=== PATIENT | male | born 1945 | race Caucasian/White ===

== ENCOUNTER 2022-07-14 12:43 | Outpatient (CLI) | payer OTHER, SELFPAY ==
--- NOTE | 2022-07-14 13:00 | CRLHL7_ITS ---
For Patients: As a result of the Century Cures Act, medical imaging exams and procedure reports are released immediately into your electronic medical record. You may view this report before your referring provider. If you have questions, please contact your health care provider. Indication: Anal cancer s/p chemoradiotherapy Evaluation of indeterminate pulmonary nodules Technique: Postcontrast CT chest, abdomen and pelvis. 97 cc Isovue 370 intravenous contrast Please note that all CT scans at this facility use dose modulation, iterative reconstruction, and/or weight-based dosing when appropriate to reduce radiation dose to as low as reasonably achievable. Comparison: CT PET 04/06/2019, CT 10/25/2018 Findings: In the chest, there are stable subcentimeter mediastinal lymph nodes. Stable old granulomatous changes with calcified lymph nodes and calcified granulomas. No suspicious pulmonary nodule. No pleural effusion, infiltrate or pneumothorax. No CHF. No fracture. Cardiomegaly. In the abdomen, there is no suspicious intrahepatic lesion. Fatty infiltration of the liver. No stigmata of cirrhosis. Calcified splenic granulomas. Adrenal glands normal. No solid renal mass or hydronephrosis. Pancreas is normal. Normal gallbladder. Vascular calcifications. No retroperitoneal or mesenteric adenopathy. In the pelvis, mild circumferential wall thickening of the anus again noted. Colonic diverticulosis. No diverticulitis. No bowel obstruction. No free air, free fluid or abscess. Normal appendix. Similar appearance of the right testicle. No pelvic or inguinal adenopathy. Interval development of a compression deformity involving the L5 superior endplate. Impression: Similar appearance of the anus with circumferential wall thickening, mild. No bowel obstruction or inflammatory change. No evidence of metastatic disease. No suspicious pulmonary nodules. Old granulomatous disease. Hepatic steatosis. Chronic sigmoid diverticulosis. Interval development of a mild L5 superior endplate compression deformity. Please note that all CT scans at this facility use dose modulation, iterative reconstruction, and/or weight-based dosing when appropriate to reduce radiation dose to as low as reasonably achievable. Dictated by Abad Heard MD @ 07/15/2022 1:40:14 PM (Electronically Signed)
[2022-07-14 13:24] LABS: Creatinine* 1.1 mg/dL (0.5-1.5); Estimated Glomerular Filt Rate 70 ml/min
== END 2022-07-14 12:44 | disposition home or self-care (01) ==
PROVIDERS: PCP Family Medicine; Visit Provider Physician Assistant
DX: C21.1 Malignant neoplasm of anal canal (principal); K76.0 Fatty (change of) liver, not elsewhere classified; K57.30 Diverticulosis of large intestine without perforation or abscess without bleeding
CPT/HCPCS: 36415; 71260; 74177; 82565; Q9967

== ENCOUNTER 2022-08-07 13:59 | Outpatient (CLI) | payer OTHER, SELFPAY ==
[2022-08-07 19:09] LABS: Chloride* 106 mmol/L (96-114); Potassium* 4.9 mmol/L (3.6-5.1); Sodium* 139 mmol/L (135-149)
[2022-08-07 19:11] LABS: Aspartate Amino Transferase* 34 U/L (12-35); Bilirubin Total* 1.8 mg/dL (0.1-1.5); Blood Urea Nitrogen* 17 mg/dL (7-30); Carbon Dioxide* 29 mmol/L (20-32); Cholesterol* 173 mg/dL (90-199); Estimated Glomerular Filt Rate 78 ml/min; Glucose* 90 mg/dL (60-115); Total Protein* 6.8 g/dL (6.0-8.3)
[2022-08-07 19:12] LABS: Alanine Aminotransferase* 29 U/L (4-50); Alkaline Phosphatase* 91 U/L (40-150); Calcium* 9.2 mg/dL (8.4-10.6); HDL Cholesterol* 43 mg/dL (>=40); LDL Cholesterol Calculated 98 mg/dL (<100); Triglycerides* 159 mg/dL (40-149)
[2022-08-07 19:58] LABS: Vitamin B12* 242 pg/mL (243-894)
== END 2022-08-07 14:00 | disposition home or self-care (01) ==
PROVIDERS: PCP Family Medicine; Visit Provider Family Medicine
DX: C21.0 Malignant neoplasm of anus, unspecified (principal); E78.5 Hyperlipidemia, unspecified; I48.91 Unspecified atrial fibrillation; Z13.21 Encounter for screening for nutritional disorder
CPT/HCPCS: 80053; 80061; 82607

== ENCOUNTER 2022-10-20 12:48 | Outpatient (RCR) | payer OTHER, SELFPAY ==
[2022-10-20 13:37] LABS: Basophils Absolute Auto 0.03 K/uL (0.00-0.30); Basophils Percent Auto 0.6 % (0.0-3.0); Eosinophils Absolute Auto 0.09 K/uL (0.00-0.50); Eosinophils Percent Auto 1.8 % (0.0-7.0); Hematocrit 47.9 % (37.0-53.0); Hemoglobin* 15.4 gm/dL (13.5-17.5); Immature Granulocytes Abs Auto 0.01 K/uL (0.00-0.30); Immature Granulocytes Pct Auto 0.2 %; Lymphocytes Percent Auto 18.4 % (20-44); Mean Corpuscular HGB Conc 32 gm/dL (32-36); Mean Corpuscular Hemoglobin 31 pg (26-34); Mean Corpuscular Volume 98 fL (80-100); Monocytes Percent Auto 10.4 % (0.0-11.0); Neutrophils Absolute Auto 3.36 K/uL (1.7-7.0); Neutrophils Percent Auto 68.6 % (42.0-72.0); Platelet Count* 217 K/uL (140-440); RDW Coefficient of Variation % 12.9 % (11.5-15.5); Red Blood Count 4.91 m/uL (4.30-5.90)
[2022-10-20 13:41] LABS: Slide Review Reflex No
[2022-10-20 13:52] LABS: Albumin* 4.2 g/dL (3.3-5.0); Chloride* 105 mmol/L (96-114); Potassium* 4.7 mmol/L (3.6-5.1); Sodium* 139 mmol/L (135-149)
[2022-10-20 13:54] LABS: Estimated Glomerular Filt Rate 78 ml/min
[2022-10-20 13:55] LABS: Alanine Aminotransferase* 28 U/L (4-50); Alkaline Phosphatase* 83 U/L (40-150); Aspartate Amino Transferase* 32 U/L (12-35); Bilirubin Total* 1.8 mg/dL (0.1-1.5); Blood Urea Nitrogen* 20 mg/dL (7-30); Carbon Dioxide* 28 mmol/L (20-32); Glucose* 101 mg/dL (60-115); Total Protein* 7.4 g/dL (6.0-8.3)
[2022-10-21 23:39] LABS: Carcinoembryonic Antigen 9.3 ng/mL
== END 2023-04-18 23:59 | disposition home or self-care (01) ==
LOC: CCIC 12:48
PROVIDERS: PCP Family Medicine; Visit Provider Internal Medicine Hematology & Oncology
DX: C21.0 Malignant neoplasm of anus, unspecified (principal); R19.7 Diarrhea, unspecified; R78.89 Finding of other specified substances, not normally found in blood
CPT/HCPCS: 36415; 80053; 82378; 85025; 99212; 99214

== ENCOUNTER 2023-04-09 11:35 | Outpatient (CLI) | payer OTHER, SELFPAY | END 2023-04-09 11:36 | disposition home or self-care (01) | LOC: NFLDREF 04-16 09:05 | PROVIDERS: PCP Family Medicine; Referring Provider Family Medicine; Visit Provider Clinical Nurse Specialist | DX: C21.0 Malignant neoplasm of anus, unspecified (principal) | CPT/HCPCS: 80053; 82378 ==

== ENCOUNTER 2023-04-22 14:00 | Outpatient (CLI) | payer OTHER, SELFPAY ==
--- NOTE | 2023-04-22 14:00 | CRLHL7_ITS ---
For Patients: As a result of the Century Cures Act, medical imaging exams and procedure reports are released immediately into your electronic medical record. You may view this report before your referring provider. If you have questions, please contact your health care provider. INDICATION: Abnormal levels of serum enzymes. History anal cancer. TECHNIQUE: CT abdomen and pelvis acquired with 100 cc Isovue 370 IV contrast. COMPARISON: 07/14/2022. FINDINGS: Lower chest: Calcified granulomata left lung base. Coronary calcification. Left atrial enlargement. Liver: Moderate/severe hepatic steatosis. No suspicious hepatic lesion. Gallbladder and bile ducts: Unremarkable. No stones or inflammation. No biliary dilatation. Pancreas: Unremarkable. No mass or inflammation. Spleen: Unremarkable. Normal in size. Small calcified granulomas. Adrenal glands: Unremarkable. No nodules. Kidneys: Unremarkable. No suspicious masses, stones, or hydronephrosis. GI tract: No bowel obstruction. Mild circumferential wall thickening of the anus, unchanged. Colonic diverticulosis. No bowel obstruction. Normal appendix. Vasculature: Scattered atherosclerosis. No aneurysm. Mesenteric arteries are patent. Lymph nodes: No lymphadenopathy. Peritoneum/Abdominal Wall: Unremarkable. No sign of mass or infiltration. No free air or significant free fluid. Pelvis: Unremarkable. Bones: No T5 compression deformity. No suspicious osseous lesion. IMPRESSION: 1. No evidence of metastatic disease in the abdomen or pelvis. 2. Similar appearance of the annulus with mild circumferential wall thickening. 3. Hepatic steatosis. 4. Colonic diverticulosis. Please note that all CT scans at this facility use dose modulation, iterative reconstruction, and/or weight-based dosing when appropriate to reduce radiation dose to as low as reasonably achievable. Dictated by Greg Levy MD @ 04/26/2023 11:14:19 AM (Electronically Signed)
== END 2023-04-22 14:01 | disposition home or self-care (01) ==
LOC: CT 14:00
PROVIDERS: PCP Family Medicine; Visit Provider Physician Assistant
DX: R74.8 Abnormal levels of other serum enzymes (principal); K76.0 Fatty (change of) liver, not elsewhere classified; K57.30 Diverticulosis of large intestine without perforation or abscess without bleeding; C21.0 Malignant neoplasm of anus, unspecified
CPT/HCPCS: 74177; Q9967

== ENCOUNTER 2023-09-16 13:30 | Outpatient (RCR) | payer OTHER, SELFPAY ==
[2023-04-22 14:12] LABS: Albumin* 4.1 g/dL (3.3-5.0)
[2023-04-22 14:15] LABS: Bilirubin Total* 1.5 mg/dL (0.1-1.5); Creatinine* 0.9 mg/dL (0.5-1.5); Estimated Glomerular Filt Rate 88 ml/min; Total Protein* 7.2 g/dL (6.0-8.3)
[2023-04-22 14:16] LABS: Alanine Aminotransferase* 32 U/L (4-50); Alkaline Phosphatase* 90 U/L (40-150); Aspartate Amino Transferase* 36 U/L (12-35)
--- NOTE | 2023-04-29 09:08 | ONC.NURNOTE ---
Ivy DUGAN reviewed CT scan and labs done on 04/22/23. Labs improved. No evidence of metastatic disease in abd or pelvis. It is recommended to have pt follow up with primary care provider regarding results of CT scan. Package Worker attempted to call pt this am, busy signal. Will continue to try to contact pt.
== END 2023-10-19 23:59 | disposition home or self-care (01) ==
LOC: CCIC 13:30
PROVIDERS: Physician Assistant; PCP Family Medicine; Visit Provider Internal Medicine Hematology & Oncology
DX: C21.0 Malignant neoplasm of anus, unspecified (principal); R19.7 Diarrhea, unspecified
CPT/HCPCS: 36415; 80076; 82565; 99211; 99212; 99213; 99214; 99215; G0463

== ENCOUNTER 2023-10-22 13:14 | Emergency (ER) | payer OTHER, SELFPAY ==
[2023-10-22 13:49] VITALS: BP 146/86; PULSE 88; RESP 20; TEMP 36.3; O2SAT 96; BMI 27.6
--- NOTE | 2023-10-25 17:02 | ED.GENADULT ---
HPI - General Adult General Chief complaint: Extremity Pain/Injury, Lower Stated complaint: R leg pain Time Seen by Provider: 10/22/23 17:43 History of Present Illness HPI narrative: presented to ED triage but was not seen by ED provider Related Data Home Medications Medication Instructions Recorded Confirmed psyllium husk (with sugar) 3 1 tbsp PO QDAY 08/07/22 10/25/23 gram/7 gram oral powder (Metamucil (with sugar)) loperamide 2 mg tablet (Imodium 2 mg PO QDAY PRN 10/20/22 10/25/23 A-D) mecobalamin (vitamin B12) 5,000 5,000 mcg PO QDAY 10/20/22 10/25/23 mcg chewable tablet latanoprost 0.005 % eye drops 1 drp ophthalmic (eye) QDAY 09/16/23 10/25/23 Previous Rx's Medication Instructions Recorded digoxin 125 mcg (0.125 mg) tablet 125 mcg PO QDAY #90 tabs 02/26/23 simvastatin 20 mg tablet 20 mg PO QPM #90 tabs 02/26/23 warfarin 2.5 mg tablet (Jantoven) 2.5 mg PO QDAY #90 tabs 07/02/23 omeprazole 20 mg capsule,delayed 20 mg PO DAILY #90 caps 08/24/23 release prednisone 20 mg tablet 20 mg PO QDAY #5 tabs 10/25/23 Allergies Allergy/AdvReac Type Severity Reaction Status Date / Time No Known Drug Allergies Allergy Verified 10/25/23 13:05 [facility] Surgical History History of left inguinal hernia repair (04/26/09) ?Z98.890 - Other specified postprocedural states (ICD-10) ?Z87.19 - Personal history of other diseases of the digestive system (ICD-10) Social History Smoking Status: Former smoker Course Vital Signs Vital signs: Initial Vital Signs Temperature 97.3 F L 10/22/23 13:49 Temperature Source Temporal Artery Scan 10/22/23 13:49 Pulse Rate 88 10/22/23 13:49 Respiratory Rate 20 10/22/23 13:49 Blood Pressure 146/86 H 10/22/23 13:49 Blood Pressure Mean 106 H 10/22/23 13:49 Blood Pressure Position Sitting 10/22/23 13:49 Pulse Oximetry 96 10/22/23 13:49 Oxygen Delivery Method Room Air 10/22/23 13:49 Vital Signs Temperature 97.3 F L 10/22/23 13:49 Pulse Rate 88 10/22/23 13:49 Respiratory Rate 20 10/22/23 13:49 Blood Pressure 146/86 H 10/22/23 13:49 Pulse Oximetry 96 10/22/23 13:49 Oxygen Delivery Method Room Air 10/22/23 13:49 Temperature 97.3 F L 10/22/23 13:49 Pulse Rate 88 10/22/23 13:49 Respiratory Rate 20 10/22/23 13:49 Blood Pressure 146/86 H 10/22/23 13:49 Pulse Oximetry 96 10/22/23 13:49 Oxygen Delivery Method Room Air 10/22/23 13:49 Discharge Plan Discharge Prescriptions: No Action Metamucil (with sugar) 3 gram/7 gram powder 1 tbsp PO QDAY mecobalamin (vitamin B12) 5,000 mcg tablet,chewable 5,000 mcg PO QDAY loperamide [Imodium A-D] 2 mg tablet 2 mg PO QDAY PRN latanoprost 0.005 % drops 1 drp ophthalmic (eye) QDAY prednisone 20 mg tablet 20 mg PO QDAY Qty: 5 0RF simvastatin 20 mg tablet 20 mg PO QPM Qty: 90 3RF digoxin 125 mcg (0.125 mg) tablet 125 mcg PO QDAY Qty: 90 3RF warfarin [Jantoven] 2.5 mg tablet 2.5 mg PO QDAY Qty: 90 6RF Protocol: Dose Management Condition: Wednesday Dose/Route: 2.5 mg Instruction: 1 x 2.5 mg tablet Condition: Wednesday Dose/Route: 2.5 mg Instruction: 1 x 2.5 mg tablet Condition: Wednesday Dose/Route: 2.5 mg Instruction: 1 x 2.5 mg tablet Condition: Wednesday Dose/Route: 2.5 mg Instruction: 1 x 2.5 mg tablet Condition: Dose/Route: 5 mg Instruction: 2 x 2.5 mg tablets Condition: Wednesday Dose/Route: 2.5 mg Instruction: 1 x 2.5 mg tablet Condition: Wednesday Dose/Route: 2.5 mg Instruction: 1 x 2.5 mg tablet Protocol Text: Adjustment Start Date: Wednesday10/15/23 INR Value: 2.0 INR Date: 10/15/23 Recheck Date: 11/14/23 omeprazole 20 mg capsule,delayed release(DR/EC) 20 mg PO DAILY Qty: 90 0RF Follow Up/Referrals: Bony Pleitez MD [Primary Care Provider] -
== END 2023-10-22 17:44 | disposition home or self-care (01) ==
PROVIDERS: Emergency Provider Emergency Medicine; PCP Family Medicine
DX: Z53.21 Procedure and treatment not carried out due to patient leaving prior to being seen by health care provider (principal)
CPT/HCPCS: 99281

== ENCOUNTER 2024-03-24 13:15 | Outpatient (CLI) | payer OTHER, MEDICAID, SELFPAY | END 2024-03-24 13:16 | disposition home or self-care (01) | LOC: NFLDREF 03-26 06:23 | PROVIDERS: PCP Family Medicine; Referring Provider Family Medicine; Visit Provider Family Medicine | DX: Z79.01 Long term (current) use of anticoagulants (principal) | CPT/HCPCS: 85610 ==

== ENCOUNTER 2024-04-17 13:21 | Outpatient (CLI) | payer OTHER, MEDICAID, SELFPAY ==
--- OUTSIDE RECORDS SUMMARY | 2024-04-17 13:27 | XMS_ITS | Continuity of Care Document ---
Author Name [facility] Organization [facility] Care Team Providers Care Compression Molding Machine Setter Name Role Phone [facility] Unavailable Unavailable Problems Combined list of problems from Department of [facility] and Veterans Affairs facilities. It does not include entries that were removed or entered in error. Problem Status Onset Date Problem Type Date of Resolution Comments Source AF- Atrial Fibrillation (SCT 37177312) Active Condition Sep 02, 2017 Entered By: CHRIS ALBARADO Comment: life-long anticoagulation [facility] Dyslipidemia (ICD-9-CM 272.4) Active Condition [facility] GERD - Gastro-Esophage al Reflux Disease (SCT 485319583) Active Condition [facility] HTN - Hypertension (SCT 93217034) Active Condition [facility] Internal hemorrhoids with other complication (ICD-9-CM 455.2) Active Condition [facility] Medications Combined list of outpatient medications from Department of Defense and Veterans Affairs facilities.Medications provided include 1) outpatient medications from the last 15 months, and 2) patient-reported medications. Medication Details Route Status Patient Instructions Prescription Expires Prescription Number Last Dispense Date Ordering Provider Order Date Order Qty Source LATANOPROST 0.005% SOLN,OPH LATANOPR OST 0.005% SOLN,OPH Active INSTILL 1 DROP IN BOTH EYES AT BEDTIME Nov 23, 2023 7.5 November 23, 2024 [id number] November 25, 2023 FB[facility] LMIC ACTIVE 11/23/2024 [id number] FB-JACINDA PROCTOR 2023 7.5 [facility] METOPROLOL TARTRATE TAB METOPROL OL TARTRATE TAB Non-VA TAKE 12.5MG BY MOUTH TWICE A DAY Sep 02, 2017 Non-VA Document ed by: CHRIS ALBARADO Document ed at: [facility] ORAL ACTIVE Osvaldo ALBARADO 2017 [facility] RANITIDINE HCL 150MG TAB RANITIDI NE HCL 150MG TAB Non-VA TAKE ONE TABLET BY MOUTH EVERY DAY NEEDED Sep 15, 2010 Non-VA Document ed by: KAILEE PILLAI TTI Document ed at: [facility] ORAL ACTIVE FREYA,JOON TI 2010 [facility] SIMVASTATIN 80MG TAB SIMVASTA TIN 80MG TAB Non-VA TAKE ONE-HALF TABLET BY MOUTH AT BEDTIME Sep 02, 2017 Non-VA Document ed by: CHRIS ALBARADO Document ed at: [facility] ORAL ACTIVE Osvaldo ALBARADO 2017 [facility] WARFARIN NA ([place]) 2.5MG TAB WARFARIN NA ([place]) 2.5MG TAB Non-VA TAKE TWO TABLETS BY MOUTH EVERY DAY Sep 15, 2010 Non-VA Document ed by: KAILEE PILLAI TTI Document ed at: [facility] ORAL ACTIVE JOON PILLAI TI 2010 [facility] Immunizations Combined list of available immunizations from the Department of Defense and Veterans Affairs facilities. Immunization Series Date Given Administered By Site Reaction Lot Number CVX Code Drug Hard Tile Setter Status Comments Source TDAP 2010 115 complet ed SANOFI Atigeo LIMITED, [id number], [facility] Encounters Combined list of: 1) Encounters from Department of Veterans Affairs facilities going back up to thelast 18 months. 2) Encounters from the Department of Defense facilities going back up to 280 months. Location Location Details Encounter Type Encounter Number Reason For Visit Attending Provider ADM Date DC Date Status Disposition Source [facility] Outpatient Encounter [id number] Uche SMITH 10/20 [facility] Outpatient Encounter [id number] 11/02 [facility] [place] [facility] Outpatient Encounter [id number] 02/12 [facility] [place] [facility] Outpatient Encounter [id number] 09/03 [facility] [place] [facility] Outpatient Encounter [id number] 09/09 [place] [facility] [place] [facility] Outpatient Encounter [id number] 09/14 [place] [facility] [place] [facility] Outpatient Encounter [id number] 09/15 [place] [facility] [place] [facility] Outpatient Encounter [id number] 09/15 [place] [facility] [place] [facility] Outpatient Encounter [id number] 09/28 [place] [facility] [place] [facility] Outpatient Encounter [id number] 09/28 [place] [facility] [place] [facility] Outpatient Encounter [id number] 10/18 [place] [facility] [place] [facility] Outpatient Encounter [id number] 11/01 [place] [facility] [place] [facility] Outpatient Encounter [id number] 11/07 [place] [facility] Social History Combined list of available smoking, tobacco, and other social history from Department of Defense and Veterans Affairs facilities. Social History Type Response Date Comment [facility] e Tobacco smoking status NHIS FORMER TOBACCO USER 7Y OR GREATER 08/22/2010 [facility]
--- OUTSIDE RECORDS SUMMARY | 2024-04-17 13:28 | XMS_ITS ---
Author Organization [facility] Address [address] [place] [address] Care Team Providers Care Office Services Specialist Name Role Phone Unavailable Unavailable Unavailable Surgery Details Not on file Complications Check Surgery Details section. Procedure Estimated Blood Loss Check Surgery Details section. Procedure Findings Check Surgery Details section. Procedure Specimens Taken Check Surgery Details section.
--- OUTSIDE RECORDS SUMMARY | 2024-04-17 13:28 | XMS_ITS | Referral Summary ---
Author Organization [facility] Address [address] [place] [address] Care Team Providers Care Efficiency Miner Blasting Name Role Phone Elsewhere, Pcp Primary Care Provider Unavailabl e Source Comments Patient records contain information from all sites at [facility]. For routine questions regarding patient records, call [phone] during business hours, M-F 8:00 AM - 5:00 PM Central Time. Record requests for emergency care only can be directed to [phone] at any time.[facility] Allergies No known active allergies Medications Medication Sig Dispensed Refills Start Date End Date Status loperamide (IMODIUM A-D) 2 mg tablet Take 2 mg by mouth daily as needed for diarrhea. Active simvastatin (ZOCOR) 20 mg tablet Bedtime 02/09/2020 Active omeprazole (PriLOSEC) [address] capsule every morning before breakfast. 01/21/2021 Active digoxin (LANOXIN) 125 mcg (0.125 mg) tablet Take 1 tablet by mouth daily. 06/04/2022 Active Jantoven 2.5 mg tablet Take 1 tablet by mouth daily. 06/09/2022 Active psyllium, with aspartame, (METAMUCIL) 3.4 gram/5.8 gram oral powder Take 3.4 g by mouth daily. Active ketorolac (ACULAR) 0.5 % ophthalmic solution 11/02/2023 Act varsha traMADoL (ULTRAM) 50 mg tablet as needed. 11/26/2023 Active acetaminophen (TYLENOL 8 HR) 650 mg ER tablet Take 1,300 mg by mouth daily. Active cyanocobalamin (vitamin B-12) 1,000 mcg tablet Take 5,000 mcg by mouth daily. 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 on 11/02/2018 Social History Tobacco Use Types Packs/Day Years Used Date Smoking Tobacco: Former Cigarettes Q uit: 07/26/1982 Passive Smoke Exposure: Never Smokeless Tobacco: Never Nutrition Answer Date Recorded Nutrition: EVOO Fat Source 13 02/19 Nutrition: Servings of Fruits/Vegetables per Day Not on file 02/20/2020 Dental Answer Date Recorded Dental: Regular Dentist Unknown 09/18/19 21 Sex and Gender Information Value Date Recorded Sex Assigned at Male 04/24/2021 9:59 AM CDT Gender Identity Male 11/03/2018 12:38 PM CDT Sexual Orientation Straight 11/03/2018 12 :38 PM CDT Last Filed Vital Signs Vital Sign Reading Time Taken Comments Blood Pressure 116/66 08/26/2023 3:41 PM VEGETABLE LOADER Pulse 84 08/26/2023 3:41 PM VEGETABLE LOADER Temperature 36.2 ??C (97.1 ??F) 08/26/2023 3:41 PM CS T Respiratory Rate - - Oxygen Saturation - - Inhaled Oxygen Concentration - - Weight 80.5 kg (177 lb 7.5 oz) 08/26/2023 3:41 P M VEGETABLE LOADER Height 177.8 cm (5' 10) 11/03/2018 12:48 PM CDT Body Mass Index 25.46 11/03/2018 12:48 PM CDT Plan of Treatment Not on file Care Teams Efficiency Miner Blasting Relationship Specialty Start Date End Date Elsewhere, Pcp PCP - General Internal Medicine 11/03/18
--- OUTSIDE RECORDS SUMMARY | 2024-04-17 13:28 | XMS_ITS | Clinical Summary ---
Author Organization [facility] Address [address] [place] [address] Care Team Providers Care Dairy Inspector Name Role Phone Elsewhere, Pcp Primary Care Provider Unavailabl e Source Comments Patient records contain information from all sites at [facility]. For routine questions regarding patient records, call [phone] during business hours, M-F 8:00 AM - 5:00 PM Central Time. Record requests for emergency care only can be directed to [phone] at any time.[facility] Allergies No known active allergies Medications Medication [...] Comments Blood Pressure 116/66 08/26/2023 3:41 PM LEAF SORTER Pulse 84 08/26/2023 3:41 PM LEAF SORTER Temperature 36.2 ??C (97.1 ??F) 08/26/2023 3:41 PM CS T Respiratory Rate - - Oxygen Saturation - - Inhaled Oxygen Concentration - - Weight 80.5 kg (177 lb 7.5 oz) 08/26/2023 3:41 P M LEAF SORTER Height 177.8 cm (5' 10) 11/03/2018 12:48 PM CDT Body Mass Index 25.46 11/03/2018 12:48 PM CDT Plan of Treatment Health Maintenance Due Date Last Done Comments Hepatitis C Screening 1945 Zoster Vaccines (1 of 2) 09/26/1995 RSV vaccine - (32-3 6 weeks) or 60+ years (1 - 1-dose 75+ series) 2020 Depression Screening (Annual PHQ-2) 07/26/2023 Fall Risk Screen (Annual) 07/26/2023 COVID-19 Vaccine (2023- season) 2024 09/02/2021, 10/19/2020, 09/28/2020 Influenza Vaccine (#1) 2024 DTaP,Tdap,and Td Vaccines (4 - Td or Tdap) 02/06/2030 02/07/2020, 08/22/2010, 07/09/2010 Pneumococcal vaccine (65+ years) Completed 01/30/20, 10/18/2012 Care Teams Dairy Inspector Relationship Specialty Start Date End Date Elsewhere, Pcp PCP - General Internal Medicine 11/03/18
--- OUTSIDE RECORDS SUMMARY | 2024-04-17 13:28 | XMS_ITS ---
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 on 11/02/2018 Current Oncology Plans No current plan information found. Past Plans No past plan information found. Radiation Treatments * Plan Last Treated On Elapsed Days Fractions Treated Prescribed Fraction Dose Prescribed Total Dose F1 Anus 12/26/2018 42 30 of 30 180 cGy 5,400 cGy Reference Point Last Treated On Elapsed Days Session Dose Total Dose [id number] 12/26/2018 42 180 cGy 5,400 cGy
== END 2024-04-17 13:22 | disposition home or self-care (01) ==
PROVIDERS: PCP Family Medicine; Visit Provider Family Medicine
DX: E78.2 Mixed hyperlipidemia (principal); E80.6 Other disorders of bilirubin metabolism
CPT/HCPCS: 80053; 80061

== ENCOUNTER 2024-08-16 13:06 | Outpatient (CLI) | payer MEDICARE, MEDICAID, SELFPAY | END 2024-08-16 13:07 | disposition home or self-care (01) | LOC: LKVREF 13:08 | PROVIDERS: PCP Family Medicine; Visit Provider Family Medicine | DX: Z01.818 Encounter for other preprocedural examination (principal) | CPT/HCPCS: 80048 ==

== ENCOUNTER 2024-08-24 07:49 | Day surgery (SDC) | payer MEDICARE, MEDICAID, SELFPAY ==
[2024-08-24] VITALS (25 sets, daily range): BP systolic 84–129; BP diastolic 62–92; PULSE 56–92; RESP 13–18; TEMP 35.7–36.6; O2SAT 89–99; BMI 26.9
[2024-08-24] MEDS: SODIUM CHLORIDE 0.9 % (FLUSH) 10 ML SYRINGE IVF (08:30)
[2024-08-24] MEDS: LACTATED RINGERS 1000 ML 1,000 ML 100 ML IV (08:30)
[2024-08-24] MEDS: OXYCODONE (CR) 10 MG TAB.ER.12H PO (08:40)
[2024-08-24] MEDS: ACETAMINOPHEN 500 MG TABLET 1000 MG PO ×2 (08:40→18:19)
[2024-08-24] MEDS: CELECOXIB 200 MG CAPSULE PO (08:40)
--- NOTE | 2024-08-24 09:25 | SUR.PREOP ---
TIME?OUT:?927 PT/RN/MDA?VERIFICATION?OF?SURGICAL?SITE,?PROCEDURE,?AND?CONSENT OBTAINED?PRIOR?TO?INVASIVE?PROCEDURE.
[2024-08-24] MEDS: MIDAZOLAM HCL 1 MG/ML inj IVP (09:28)
[2024-08-24] MEDS: fentaNYL 100 MCG/2 ML inj IVP (09:28)
[2024-08-24 09:47] LABS: INR, Point of Care* 1.2 (0.8-1.4)
[2024-08-24] MEDS: TRANEXAMIC ACID 100 MG/ML INJ 1000 MG IV (10:20)
[2024-08-24] MEDS: CEFAZOLIN 2 GM INJ IVP (10:20)
--- NOTE | 2024-08-24 10:42 | SUR.OPER ---
PATIENT QUESTIONS ANSWERED SATISFACTORILY PREOPERATIVELY. PATIENT BROUGHT TO OR #2 PER CART AFTER ADMINISTRATION OF A BLOCK. Patient positioned supine on OR #2 bed. The perioperative team supported arms bilaterally on arm boards. Final approval of positioning by surgeon.
[2024-08-24] MEDS: LACTATED RINGERS 500 ML 500 ML 125 ML IV (10:58)
--- NOTE | 2024-08-24 11:40 | W.PM.NB ---
Nerve Block Nerve Block Time Seen by Provider: 09:30 Date Seen: 08/24/24 Type of block requested by surgeon for post-operative analgesia: HARPREET/LFCN Side: right Time out performed: Yes Verification of patient name: Yes Verification of date of : Yes Site marking: site marked Name of person performing procedure: Matt Continuous monitoring Was continuous monitoring of O2 sat, B/P, monitoring analyst, recorded every 15 minutes?: Yes Procedure Checklist: sterile prep, needles and gloves Ultrasound guided. Images saved: Yes Medications given in 5ml increments after negative aspiration: Ropivicaine %: 0.5 mL: 30 Needle gauge: 20 Precedex (mcg): 25 Patient tolerated procedure well: Yes Additional comments: Needle noted below psoas tendon needle noted adjacent to LFCN Block Charges Block Charge (with Pro Fee): Other Periph Nerve Block Use of Ultrasound Machine for Block: Yes- US Guidance/pain block
--- NOTE | 2024-08-24 11:40 | W.ANESCHARGE ---
Anesthesia Charges Start Date/Time Anesthesia Start Date: 08/24/24 Anesthesia Start Time: 09:53 Stop Date/Time Anesthesia Stop Date: 08/24/24 Anesthesia Stop Time: 12:20 Summary Extremes of Age - Over 70 or under 1: MDA Coding CPT Codes CPT Codes: ANESTH HIP ARTHROPLASTY - 59802 ([id number]) P2 - PATIENT W/MILD SYST DISEASE, QK - SOLIDWORKS DESIGNER 2-4 CNCRNT ANES PROC, QX - PUTTY MIXER AND APPLIER SVC W/ MD MED DIRECTION Additional Codes: Summary - Extremes of Age - Over 70 or under 1: MDA ([id number])
--- NOTE | 2024-08-24 11:43 | CRLHL7_ITS ---
For Patients: As a result of the Cures Act, medical imaging exams and procedure reports are released immediately into your electronic medical record. You may view this report before your referring provider. If you have questions, please contact your health care provider. Indication: Postop right hip Technique: AP hip centered pelvis and lateral view right hip Findings/Impression: Hardware from a right total hip arthroplasty is in satisfactory position. Bone alignment is normal. No sign of acute fracture. Postop changes are within normal limits. Dictated by Abad Heard MD @ 08/25/2024 11:21:44 AM (Electronically Signed)
--- NOTE | 2024-08-24 11:46 | PM.ORPRC ---
Procedure Note Date of procedure: 08/24/24 Procedure: PREOPERATIVE DIAGNOSIS: Right hip osteoarthritis POSTOPERATIVE DIAGNOSIS: Right hip osteoarthritis NAME OF OPERATION: Right total hip arthroplasty SURGEON: Bud Valdez MD MANAGER INFRASTRUCTURE: Iris Beckford PA-C, JENNIE Nagy IMPLANTS: 1. [employer] # 56 sector ingrowth cup 2. 36 x 56 +4 neutral polyethylene 3. Actis # 5 standard collared ingrowth stem 4. 36 + 5 ceramic femoral head ANESTHESIA: Spinal ESTIMATED BLOOD LOSS: 100 cc COMPLICATIONS: None SPECIMENS: None DRAINS: None PREOPERATIVE ANTIBIOTICS: Ancef 2 grams INDICATIONS: The patient is a 78-year-old with a longstanding history of severe, unrelenting right hip pain secondary to end-stage right hip osteoarthritis. Despite appropriate nonoperative management, including activity modification, use of an assist device, anti-inflammatories, [id number] pain medication, physical therapy and injections, they continue to have pain and disability. Operative intervention was offered. The risks, benefits and expected outcomes were discussed in detail. These included but were not limited to: Infection, bleeding, injury to blood vessel or nerve, venous thromboembolism. All questions were answered to their satisfaction. Use of an commercial lending assistant was necessary throughout the case for patient positioning and safety, soft tissue retraction and closure. PROCEDURE: The patient was placed supine on the [place] table. General anesthesia was administered. The commercial lending assistant made sure the patient was properly positioned. The right hip was prepped and draped in the usual sterile fashion. The image intensifier was brought in for a perfect AP pelvis and a perfect double tear drop AP view of each hip which were used for intraoperative templating with our fluoroscopic guide. An oblique incision was made 3 cm distal and 3 cm lateral to the anterior superior iliac spine. The commercial lending assistant retracted the soft tissues to protect them. Subcutaneous dissection was taken with electrocautery to the superficial fascia. The fascia was divided in line with the incision. Blunt dissection was carried medially to the tensor fascia natalya and sartorius interval. Deep dissection was carried with electrocautery. The circumflex vessels were cauterized and divided. The capsule was exposed and then divided in a T-fashion, tagged with #1 Ethibond sutures. Retractors were placed in the joint, held by the commercial lending assistant. The corkscrew was placed in the femoral head. The neck cut was made in the subcapital region. We made a second neck cut more distal. The napkin ring of bone was removed. The femoral head was removed intact. Acetabular retractors were placed, held by the commercial lending assistant. The labrum was sharply debrided. The capsule was released. The 43 mm reamer was used to the true medial wall. We then enlarged in 2 mm increments using the image intensifier for our reamer placement. We impacted the cup which had excellent purchase. We placed the polyethylene. Attention was then turned to the proximal femur. The limb was placed in 140 degrees of external rotation, maximum extension and adduction. A significant amount of time was spent releasing the capsule to allow us to deliver the femur into the wound and complete the femoral side safely. Retractors were held by the commercial lending assistant throughout the femoral preparation. The metal box maker and canal finder were used. Broaches were used to a stable size. The calcar reamer was used. Trial components were placed. The +5 head had excellent soft tissue tension and stability. However looked minimally short on our fluoroscopic guide. We trialed the 8.5 mm head. However, soft tissue tension was excessively tight, even though leg lengths appear equal on the fluoroscopic guide. Therefore, we elected to go with the +5 head. Trial components were removed. The stem was impacted. We placed the femoral head. Again, the hip was reduced and was found to be stable with appropriate soft tissue tension. Length and offset had been nicely restored. The commercial lending assistant did a three minute dilute Betadine solution soak. The commercial lending assistant irrigated the wound with 3 liters of normal saline via pulse lavage. The commercial lending assistant repaired the anterior capsule with a #1 Vicryl and our previously placed Ethibond sutures. The commercial lending assistant closed the fascia over the tensor fascia natalya with a #1 PDO Stratafix, subcutaneous tissues with 2-0 Vicryl, skin with a running 3-0 Stratafix and glue. A dry dressing was applied by the commercial lending assistant. Sponge and needle counts were correct x 2. The patient tolerated the procedure well; there were no apparent complications. They were awakened and extubated in the operating room, sent to the Post-Anesthesia Care Unit in satisfactory condition. PLAN: 1. The patient will be mobilized with physical therapy, weight-bearing as tolerates 2. The patient's usual dose of Coumadin can be restarted 3. The patient will be discharged once medically appropriate
--- NOTE | 2024-08-24 12:26 | W.ANESCHARGE ---
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
[2024-08-24] MEDS: LACTATED RINGERS 1000 ML 1,000 ML 75 ML IV (14:46)
[2024-08-24] MEDS: CEFAZOLIN 2 GM in 0.9 % SODIUM CHLORIDE Mini-bag 100 ML IVPB (16:01)
[2024-08-24] MEDS: OXYCODONE 5 MG TABLET PO ×2 (16:08→18:19)
[2024-08-24] MEDS: WARFARIN 2.5 MG TABLET PO (17:14)
--- NOTE | 2024-08-24 19:36 | PC.NURSE ---
Nursing Care Hours: [id number] Pt this shift arrived from PACU just before 1300. completed post op recovery without incident. VSS, pain controlled, bandage CDI. Ambulated to BR with 1-2 assist, walker and gait belt. Void x2. Tolerating regular diet, and saline locked. CMS and pedal pulses present.
[2024-08-24] MEDS: SENNOSIDES 1 TAB TABLET 2 TAB PO (20:21)
--- NOTE | 2024-08-24 20:38 | PM.IMCN1 ---
Date of Consult Patient: [facility] Patient Consult date: 08/24/24 Requesting Physician: Orthopedics Primary Care Provider: Bony Pleitez MD Consult Narrative Reason for consult: Post-operative support of [place]. Fib, anticogulation, HLD, glaucoma Narrative: Michael Rayo is a 78 year old man undergoes an elective right total hip arthroplasty today without apparent complications or concerns. Estimated intraoperative blood losses 100 mL. Postoperative pain control is satisfactory. Appetite is normalized. He is anxious to move forward so he can return to his home. Lives home alone. One of his daughters will be helping him for a while along with some neighbors. Review of Systems Status of ROS: Reports: 6 or more systems reviewed and unremarkable except as noted in History and below Narrative: Active eid. Grows corn, beans, hay. The right hip pain has been incapacitating. Even so he has continued to work. Denies cardiopulmonary symptoms limiting his physical abilities. He heats his home with wood. He has done all the work entailed in keeping the house warm with would without limitations. 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 Treated with radiation and chemotherapy. Last colonoscopy in July 2022. No recurrence. Still struggles with frequent stooling. He is thrilled that it has decreased significantly compared to previously when he was having multiple bowel movements daily. No recent travel, injury, illness. Denies blood loss of any sort. Anxious to start working in the [employer] again. He is excited about the warm weather we had the last couple days. He tells me the ground is still frozen solid. [facility] Medical History Glaucoma ?H40.9 - Unspecified glaucoma (ICD-10) Degenerative joint disease of right hip ?M16.11 - Unilateral primary osteoarthritis, right hip (ICD-10) Atrial fibrillation ?I48.91 - Unspecified atrial fibrillation (ICD-10) Hyperlipidemia ?E78.5 - Hyperlipidemia, unspecified (ICD-10) GERD (gastroesophageal reflux disease) ?K21.9 - Gastro-esophageal reflux disease without esophagitis (ICD-10) BPH (benign prostatic hyperplasia) ?N40.0 - Benign prostatic hyperplasia without lower urinary tract symptoms (ICD-10) Squamous cell carcinoma of anus (10/20/18) ?C21.0 - Malignant neoplasm of anus, unspecified (ICD-10) Ascending aortic aneurysm ?I71.21 - Aneurysm of the ascending aorta, without rupture (ICD-10) Radicular leg pain ?M54.10 - Radiculopathy, site unspecified (ICD-10) Compression fracture of L5 vertebra ?S32.050A - Wedge compression fracture of fifth lumbar vertebra, initial encounter for closed fracture (ICD-10) Right knee pain ?M25.561 - Pain in right knee (ICD-10) Blood in stool ?K92.1 - Melena (ICD-10) Hyperbilirubinemia ?E80.6 - Other disorders of bilirubin metabolism (ICD-10) Elevated liver enzymes ?R74.8 - Abnormal levels of other serum enzymes (ICD-10) Diverticulosis ?K57.90 - Diverticulosis of intestine, part unspecified, without perforation or abscess without bleeding (ICD-10) Peripheral vertigo ?H81.399 - Other peripheral vertigo, unspecified ear (ICD-10) Surgical History History of excision of mass (10/20/18) ?Z98.890 - Other specified postprocedural states (ICD-10) S/P cataract extraction ?Z98.49 - Cataract extraction status, unspecified eye (ICD-10) History of left inguinal hernia repair (04/26/09) ?Z98.890 - Other specified postprocedural states (ICD-10) ?Z87.19 - Personal history of other diseases of the digestive system (ICD-10) Social History What is your current living situation?: I presently have a place to live Problems where you live: no known problems In the past 12 months, utilities in danger of being shut off: no In past 12 months, lack of transportation kept you from medical appts, meetings, work, or getting things needed for daily living: no In the past 12 mos, have been you worried that your food would run out before you had money to buy more?: never true In the past 12 mos, the food you bought just didn't last and you didn't have money to buy more?: never true Highest level of school completed/degree received: high school graduate Smoking Status: Never smoker Do you use any of these nicotine containing products: None Second hand tobacco smoke exposure: No How often do you have a drink containing alcohol: never How often do you have six or more drinks on one occasion: Never AUDIT-C Alcohol total score: 0 Non-prescribed substance use: denies use Caffeine: No How often does anyone, including family, friends and others, physically hurt you: never How often does anyone, including family, friends and others, insult or talk down to you: never How often does anyone, including family, friends and others, threaten you with harm: never How often does anyone, including family, friends and others, scream or curse at you: never service: Yes Meds Home Medications and Allergies Home Medications ?Medication ?Instructions ?Recorded ?Confirmed ?Type psyllium husk (with sugar) 3 1 tbsp PO DAILY 08/07/22 08/24/24 History gram/7 gram oral powder (Metamucil (with sugar)) loperamide 2 mg tablet (Imodium 2 mg PO DAILY PRN 10/20/22 08/24/24 History A-D) mecobalamin (vitamin B12) 5,000 5,000 mcg PO DAILY 10/20/22 08/24/24 History mcg chewable tablet latanoprost 0.005 % eye drops 1 drp ophthalmic (eye) HS 09/16/23 08/24/24 History digoxin 125 mcg (0.125 mg) tablet 125 mcg PO DAILY 08/24/24 08/24/24 History simvastatin 20 mg tablet 20 mg PO HS 08/24/24 08/24/24 History tramadol 50 mg tablet 50 - 100 mg PO QHS PRN pain 08/24/24 08/24/24 History warfarin 2.5 mg tablet (Jantoven) 2.5 mg PO DAILY 08/24/24 08/24/24 History Allergies Allergy/AdvReac Type Severity Reaction Status Date / Time No Known Drug Allergies Allergy Verified 08/24/24 08:04 Exam Narrative: Exam Narrative: I examine him in his hospital room. Appears comfortable no acute distress. He is sitting in the recliner chair at his bedside. Hard of hearing but quite adequate for conversation. Adequate vision with his glasses on. Engages in conversation. Friendly, articulate, cooperative. Alert and oriented x4. Lungs are clear to auscultation. Heart tones with chaotic rhythm, normal S1-S2, without murmur, gallop, or rub. Abdomen with active bowel sounds, soft, nontender. Cold pack on his right hip. Moves all 4 extremities. Const: Vital Signs, click to edit/add: Vital Signs - 24 hr 08/24/24 08:15 08/24/24 09:28 08/24/24 09:35 Temperature 97.8 F Pulse Rate 81 85 64 Respiratory Rate 16 16 16 Blood Pressure 123/79 114/75 113/78 Pulse Oximetry 94 95 97 Oxygen Delivery Me thod Room Air Room Air Nasal Cannula Oxygen Flow Rate 4 08/24/24 09:40 08/24/24 09:45 08/24/24 12:15 Temperature 97.4 F L Pulse Rate 64 64 56 L Respiratory Rate 16 16 13 Blood Pressure 110/77 104/72 95/63 Pulse Oximetry 99 98 89 Oxygen Delivery Me thod Nasal Cannula Nasal Cannula Nasal Cannula Oxygen Flow Rate 4 4 3 08/24/24 12:20 08/24/24 12:25 08/24/24 12:30 Temperature 97.0 F L Pulse Rate 76 65 81 Respiratory Rate 14 16 16 Blood Pressure 84/62 L 106/63 106/73 Pulse Oximetry 93 93 93 Oxygen Delivery Me thod Nasal Cannula Nasal Cannula Nasal Cannula Oxygen Flow Rate 3 1 1 08/24/24 12:35 08/24/24 12:40 08/24/24 12:45 Temperature 97.2 F L Pulse Rate 86 81 80 Respiratory Rate 16 16 16 Blood Pressure 94/64 105/75 99/77 Pulse Oximetry 96 93 93 Oxygen Delivery Me thod Room Air Room Air Room Air Oxygen Flow Rate 08/24/24 12:53 08/24/24 13:00 08/24/24 13:15 Temperature 97.3 F L 96.7 F L Pulse Rate 67 67 59 L Respiratory Rate 16 Blood Pressure 117/76 103/72 106/78 Pulse Oximetry 94 91 91 Oxygen Delivery Me thod Room Air Room Air Room Air Oxygen Flow Rate 08/24/24 13:30 08/24/24 13:45 08/24/24 14:00 Temperature Pulse Rate 61 66 67 Respiratory Rate 16 Blood Pressure 102/74 101/76 96/69 Pulse Oximetry 92 92 Oxygen Delivery Me thod Room Air Room Air Room Air Oxygen Flow Rate 08/24/24 14:30 08/24/24 15:00 08/24/24 15:00 Temperature 96.2 F L Pulse Rate 77 Respiratory Rate 16 16 18 Blood Pressure 120/92 H Pulse Oximetry 95 Oxygen Delivery Me thod Room Air Room Air Oxygen Flow Rate 08/24/24 15:30 08/24/24 17:00 08/24/24 18:00 Temperature Pulse Rate 86 82 92 Respiratory Rate 16 Blood Pressure 122/79 116/82 129/86 Pulse Oximetry 94 96 Oxygen Delivery Me thod Room Air Room Air Room Air Oxygen Flow Rate Assessment and Plan Assessment and plan (1) Status post right hip replacement: Problem comment: - 08/24/2024: Dr. 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 Reviewed my impression with the patient 2. Continue his home medication regimen during hospital and at discharge, including resume his warfarin with INR goal of 2-3 3. Recheck INR next week on Wednesday with results to his primary intensive care ambulance paramedic, Dr. Pleitez 4. Agree with perioperative antibiotic prophylaxis 5. Agree with perioperative anticoagulation with warfarin which he ordinarily takes to lower his risk of thromboembolism in association with atrial fibrillation 6. Available to assist in the management of this patient's medical problems while he is here in the hospital 7. I answered patient's questions to satisfaction 8. Patient is agreeable with above stated plans and recommendations 9. I completed the hospitalist portion of the discharge orders for this patient Total Time Spent Total Time Spent: 45 minutes
[2024-08-25 00:01] VITALS: BP 103/68; PULSE 75; RESP 16; TEMP 36.4; O2SAT 92
[2024-08-25] MEDS: ACETAMINOPHEN 500 MG TABLET 1000 MG PO ×2 (00:14→05:59)
[2024-08-25] MEDS: OXYCODONE 5 MG TABLET PO ×3 (00:14→06:01)
[2024-08-25] MEDS: CEFAZOLIN 2 GM in 0.9 % SODIUM CHLORIDE Mini-bag 100 ML IVPB (00:15)
[2024-08-25 03:00] VITALS: BP 103/78; PULSE 81; RESP 16; TEMP 36.9; O2SAT 93
--- NOTE | 2024-08-25 06:43 | PC.NURSE ---
End of shift note [id number]: Pt A&Ox4 and able to make needs known. He is transferring with?assist of 1 using gait belt and FWW. Pt continent of bladder. Dressing to R hip noted to be C/D/I with CMS to RLE intact. VSS- pt has been afebrile and on RA throughout the shift. Pain to right hip/leg controlled with PRN and scheduled medications, ice, rest and repositioning. Pt able to reposition independently when in bed. Pt up in chair ready for breakfast. He's had no c/o CP or N/V noted throughout the shift. Call light within reach. ?
[2024-08-25 07:02] LABS: Potassium* 4.3 mmol/L (3.6-5.1); Sodium* 136 mmol/L (135-149)
[2024-08-25 07:03] LABS: Hemoglobin* 13.4 gm/dL (13.5-17.5); Immature Granulocytes Abs Auto 0.01 K/uL (0.00-0.30); Immature Granulocytes Pct Auto 0.1 %; Lymphocytes Percent Auto 5.6 % (20-44); Mean Corpuscular HGB Conc 32 gm/dL (32-36); Mean Corpuscular Hemoglobin 31 pg (26-34); Mean Corpuscular Volume 97 fL (80-100); Monocytes Percent Auto 7.7 % (0.0-11.0); Neutrophils Percent Auto 86.6 % (42.0-72.0); Platelet Count* 209 K/uL (140-440); RDW Coefficient of Variation % 12.9 % (11.5-15.5); Red Blood Count 4.31 m/uL (4.30-5.90); White Blood Count* 9.72 K/uL (4.50-11.00)
[2024-08-25 07:05] LABS: Creatinine* 0.8 mg/dL (0.5-1.5); Estimated Glomerular Filt Rate 91 ml/min; Slide Review Reflex No
[2024-08-25 07:06] LABS: Blood Urea Nitrogen* 22 mg/dL (7-30)
--- NOTE | 2024-08-25 08:07 | PM.ORPN ---
Subjective Subjective Time Seen by Provider: 07:15 Date Seen: 08/25/24 Principal diagnosis: Status post right hip replacement Interval history: Michael is doing well this morning. He has discomfort in the hip, he will discharge to home today. Ortho Exam Narrative Exam Narrative: Alert and oriented x3. Patient is in no acute distress. Converses without labored breathing. Hearing is grossly intact. Ambulates with a walker. Examination of the right hip shows the dressing is intact. Small area of ecchymosis. Mild edema. No erythema or warmth or sign of infection. CMS intact right lower extremity. He is able to straight leg raise. He is able to dorsiflex and plantar flex the ankle. Bilateral calves are soft and nontender. Const Vital Signs, click to edit/add: Vital Signs - 24 hr 08/24/24 08:15 08/24/24 09:28 08/24/24 09:35 Temperature 97.8 F Pulse Rate 81 85 64 Pulse Rate [Left Pulse Oximeter] Respiratory Rate 16 16 16 Blood Pressure 123/79 114/75 113/78 Blood Pressure [Left Arm] Blood Pressure [Right Arm] Pulse Oximetry 94 95 97 Oxygen Delivery Method Room Air Room Air Nasal Cannula Oxygen Flow Rate 4 08/24/24 09:40 08/24/24 09:45 08/24/24 12:15 Temperature 97.4 F L Pulse Rate 64 64 56 L Pulse Rate [Left Pulse Oximeter] Respiratory Rate 16 16 13 Blood Pressure 110/77 104/72 95/63 Blood Pressure [Left Arm] Blood Pressure [Right Arm] Pulse Oximetry 99 98 89 Oxygen Delivery Method Nasal Cannula Nasal Cannula Nasal Cannula Oxygen Flow Rate 4 4 3 08/24/24 12:20 08/24/24 12:25 08/24/24 12:30 Temperature 97.0 F L Pulse Rate 76 65 81 Pulse Rate [Left Pulse Oximeter] Respiratory Rate 14 16 16 Blood Pressure 84/62 L 106/63 106/73 Blood Pressure [Left Arm] Blood Pressure [Right Arm] Pulse Oximetry 93 93 93 Oxygen Delivery Method Nasal Cannula Nasal Cannula Nasal Cannula Oxygen Flow Rate 3 1 1 08/24/24 12:35 08/24/24 12:40 08/24/24 12:45 Temperature 97.2 F L Pulse Rate 86 81 80 Pulse Rate [Left Pulse Oximeter] Respiratory Rate 16 16 16 Blood Pressure 94/64 105/75 99/77 Blood Pressure [Left Arm] Blood Pressure [Right Arm] Pulse Oximetry 96 93 93 Oxygen Delivery Method Room Air Room Air Room Air Oxygen Flow Rate 08/24/24 12:53 08/24/24 13:00 08/24/24 13:15 Temperature 97.3 F L 96.7 F L Pulse Rate 67 67 59 L Pulse Rate [Left Pulse Oximeter] Respiratory Rate 16 Blood Pressure 117/76 103/72 106/78 Blood Pressure [Left Arm] Blood Pressure [Right Arm] Pulse Oximetry 94 91 91 Oxygen Delivery Method Room Air Room Air Room Air Oxygen Flow Rate 08/24/24 13:30 08/24/24 13:45 08/24/24 14:00 Temperature Pulse Rate 61 66 67 Pulse Rate [Left Pulse Oximeter] Respiratory Rate 16 Blood Pressure 102/74 101/76 96/69 Blood Pressure [Left Arm] Blood Pressure [Right Arm] Pulse Oximetry 92 92 Oxygen Delivery Method Room Air Room Air Room Air Oxygen Flow Rate 08/24/24 14:30 08/24/24 15:00 08/24/24 15:00 Temperature 96.2 F L Pulse Rate 77 Pulse Rate [Left Pulse Oximeter] Respiratory Rate 16 16 18 Blood Pressure 120/92 H Blood Pressure [Left Arm] Blood Pressure [Right Arm] Pulse Oximetry 95 Oxygen Delivery Method Room Air Room Air Oxygen Flow Rate 08/24/24 15:30 08/24/24 17:00 08/24/24 18:00 Temperature Pulse Rate 86 82 92 Pulse Rate [Left Pulse Oximeter] Respiratory Rate 16 Blood Pressure 122/79 116/82 129/86 Blood Pressure [Left Arm] Blood Pressure [Right Arm] Pulse Oximetry 94 96 Oxygen Delivery Method Room Air Room Air Room Air Oxygen Flow Rate 08/24/24 19:00 08/24/24 23:00 08/24/24 23:00 Temperature 96.6 F L Pulse Rate Pulse Rate [Left Pulse Oximeter] 90 75 Respiratory Rate 18 16 16 Blood Pressure Blood Pressure [Left Arm] 107/79 Blood Pressure [Right Arm] Pulse Oximetry 96 92 Oxygen Delivery Method Room Air Room Air Oxygen Flow Rate 08/25/24 00:01 08/25/24 03:00 Temperature 97.6 F 98.4 F Pulse Rate Pulse Rate [Left Pulse Oximeter] 75 81 Respiratory Rate 16 16 Blood Pressure Blood Pressure [Left Arm] 103/78 Blood Pressure [Right Arm] 103/68 Pulse Oximetry 92 93 Oxygen Delivery Method Room Air Room Air Oxygen Flow Rate Assessment and Plan Assessment and plan (1) Status post right hip replacement: Problem details: - 08/24/2024: Dr. Valdez, [facility], no apparent complication Status: Acute Assessment and Plan: Plan for discharge is today, and when they meets discharge criteria. DVT prophylaxis upon discharge home warfarin regimen, recheck INR on Wednesday. Remove dressing 1 week. Observe wound and phone Orthopedics with any questions or concerns Use Ice on operative hip unrestricted. Return to clinic in 7-10 days for a wound check Return to clinic in 6 weeks with surgeon Minimize narcotic use. Wean off and discontinue soon as possible. Activities as tolerated. No strenuous activity. Attend outpt PT
[2024-08-25] MEDS: SENNOSIDES 1 TAB TABLET 2 TAB PO (08:57)
[2024-08-25 09:00] VITALS: BP 98/64; PULSE 78; RESP 18; TEMP 36.3; O2SAT 99
--- NOTE | 2024-08-25 11:40 | PC.NURSE ---
Discharge: Patient pleasant and cooperative, A&O. VSS, afebrile. SpO2 maintained above 90% on RA. IV removed with tip intact. Discharge instructions provided, all questions answered. dishcarged to home.
== END 2024-08-25 10:43 | disposition home or self-care (01) ==
LOC: OR 07:50 → MEDSURG 07:52
PROVIDERS: Anesthesiology; PCP Family Medicine; Visit Provider Orthopaedic Surgery
PROC: (CPT 27130; principal; 2024-08-24 09:45)
DX: M16.11 Unilateral primary osteoarthritis, right hip (principal); G89.18 Other acute postprocedural pain; I48.91 Unspecified atrial fibrillation; Z79.01 Long term (current) use of anticoagulants; K21.9 Gastro-esophageal reflux disease without esophagitis; N40.0 Benign prostatic hyperplasia without lower urinary tract symptoms; H40.9 Unspecified glaucoma; E78.5 Hyperlipidemia, unspecified; Z85.048 Personal history of other malignant neoplasm of rectum, rectosigmoid junction, and anus
CPT/HCPCS: 27130; 01214; 36415; 64450; 73501; 76000; 76942; 82565; 84132; 84295; 84520; 85025; 85610; 86850; 86900; 86901; 97110; 97116; 97161; 97165; 97530; 97535; 99100; A9270; C1776; J0690; J1100; J2250; J2371; J2405; J2704; J2795; J3010; J7120

== ENCOUNTER 2024-09-20 13:00 | Outpatient (RCR) | payer MEDICARE, SELFPAY ==
--- NOTE | 2024-08-15 14:45 | PT.OPEX ---
PT [place] Outpatient Eval PT [facility] Outpatient Eval Start: 08/15/24 12:40 Freq: Status: Active Protocol: Document 08/15/24 12:55 MRS (Rec: 08/15/24 14:41 MRS No Response) E-signed By Delia Fernandez DPT Physical Therapy Outpatient Evaluation Insurance Information Recert Due Date 11/13/24 Insurance Name Nathan Medical Diagnosis R hip pain with R YULISA scheduled for 08/24/24 Treating Diagnosis Pain in R Hip M25.551 Stiffness in Hip Right M23.651 Difficulty walking R26.2 Referring MD Bud Valdez MD Subjective Preferred Name Michael Subjective Michael started having R hip pain [place] and has had hip pain since. Pt sought medical treatment and deemed that he needed a R YULISA to decrease R hip pain. Michael's goals include to walk better and stop having pain. Pt has PMH of rectal CA and is now in remission. 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 Assessment Assessment/Impression Michael is 78 year old male who presents today to PT for pre-operative evaluation. Pt is scheduled for R YULISA on 08/24. Pt lives alone in [facility] with 3 stairs to enter. Pt's daughter plans to stay with pt after post-op hospitalization. Pt plans to spend 1 night in hospital before d/c to home. Pt's neighbor has FWW and cane that he will use post-op. Recommend pt also considers tub chair. Pt presents with signs and symptoms consistent with R hip pain. DOS: 08/24/24. Anticipated deficits/ impairments in pain, ROM, and strength. Pt would benefit from skilled PT interventions to facilitate return to PLOF and increase strength, ROM, and independence functional mobility while decreasing pain .?Pt has OP PT treatment scheduled to after surgery starting on 09/01/24. Primary Functional Limitations pain, weakness, impaired functional mobility Plan of Care Rehabilitation Potential Good Physical Therapy Goals 1.) Pt will abide by and be able to verbalize all post- surgical restrictions to allow for adequate healing.? 2.) Patient will transition from walker to cane to independent gait with normal mechanics.? 3.) Pt will demonstrate full and pain free hip ROM? 4.) Pt will increase R hip strength to 5/5 ? Treatment Plan/Direct Interventions Gait Training,Manual Therapy, Neuromuscular Re-ed, Therapeutic Activities, Therapeutic Exercises Frequency/Duration 1-2x/week for 8 weeks Patient Will Be Discharged From Therapy Completion of LTG(s),Skills Plateau,Independent w/HEP, Independently Progressing Evaluation Billing Untimed Code Treatment Minutes 30 Complexity Low Student Supervision Licensed PT Directed/Approved Treatment, Reviewed POC with Patient,Made Contact with Patient, Participated in Treatment Certification Information Initial Certification Date 08/15/24 Ending Certification Date 11/13/24 Provider Signature Required Yes Provider Signature Shows Agreement With POC & Medical Necessity Physician NPI Number Write NPI# Here Physician Comment/Change : Physician Signature & Date Requested Please Sign/Date Here
--- NOTE | 2024-09-06 14:49 | PT.OPDNX ---
PT [facility] Daily Note PT [facility] Out[facility] Daily Note Start: 08/15/24 12:40 Freq: Status: Active Protocol: Document 09/06/24 12:30 HLA (Rec: 09/06/24 14:48 HLA [id number]) E-signed By Sandy Ordoñez, PT, DPT PT OP Daily Progress Note Visit Information Note Type Daily Note,Re-Evaluation Visit Number 2 Insurance Information Recert Due Date 11/13/24 Insurance Name Nathan Medical Diagnosis R hip pain with R YULISA scheduled for 08/24/24 Treating Diagnosis Pain in R Hip M25.551 Stiffness in Hip Right M23.651 Difficulty walking R26.2 Referring MD Bud Valdez MD Subjective Preferred Name Michael Alfonso Pt is s/p R YULISA 2 weeks ago, doing better. Dtr is present and answers some questions for pt. He is primarily taking Tylenol during the day and Tramadol at night. He has not used his ice. Used his walker 1 day then advanced to a cane. He is amb with a cane, noted short steps, flexed hips. 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 He does say he has been doing his ex. Pain Comments pain R hip moderate R hip, unable to give a number. Date of Next Physician Visit 08/30/24 Date of Surgery (If applicable) 08/24/24 Precautions Weight Bearing Status Weight Bear as Tolerated Home Exercise Home Exercise Comments Pt given HEP handout and instructed on exercises: Access Code: [email or web address] URL: [email or web address] Date: 08/15/2024 Prepared by: Delia Six Exercises - Long Sitting Quad Set - 3 x daily - 7 x weekly - 10 reps - 5 sec hold - Long Sitting Ankle Pumps - 3 x daily - 7 x weekly - 10 reps - 5 sec hold - Supine Gluteal Sets - 2 x daily - 5 x weekly - 2 sets - 10 reps - Supine Isometric Hamstring Set - 3 x daily - 7 x weekly - 10 reps - 5 sec hold - Supine Heel Slide - 3 x daily - 7 x weekly - 10 reps - Standing Hip Abduction with Counter Support - 3 x daily - 7 x weekly - 10 reps Access Code: [email or web address] URL: [email or web address] Date: 09/06/2024 Prepared by: Sandy Ordoñez Exercises - Seated Forward Bending - 1 x daily - 7 x weekly - 1 sets - 10 reps - 10 hold - Seated September - 1 x daily - 7 x weekly - 1 sets - 10 reps - Sit to Stand - 1 x daily - 7 x weekly - 1 sets - 10 reps - Standing September with Counter Support - 1 x daily - 7 x weekly - 1 sets - 10 reps - 3 hold - Standing Hip Abduction with Counter Support - 1 x daily - 7 x weekly - 1 sets - 10 reps - 3 hold - Mini Squat with Counter Support - 1 x daily - 7 x weekly - 1 sets - 10 reps - 3 hold - Heel Toe Raises with Counter Support - 1 x daily - 7 x weekly - 1 sets - 10 reps - 3 hold Objective Other/Pertinent Objective R HF 10-100 R hip abd 0-30 R hip ER 0-30 R hip IR 0-10 strength R hip 3+/5 Pain on palpation R ant thigh Incision intact, glue in place , no redness. Edema R hip and thigh present, pt encouraged to use ice. Functional Test Performed & Score LEFS= 55/80 Patient Instructed in Risks/Benefits Yes Therapeutic Exercise Therapeutic Exercise Minutes (minutes) 29 Therapeutic Exercise: To Restore Practiced YULISA Exercises and Functional Status added standing and seated ex - Long Sitting Quad Set - 3 x daily - 7 x weekly - 10 reps - 5 sec hold- pt had difficulty straightening R hip in supine so performed in sitting at edge of mat table - Long Sitting Ankle Pumps - 3 x daily - 7 x weekly - 10 reps - 5 sec hold - Supine Gluteal Sets - 2 x daily - 5 x weekly - 2 sets - 10 reps - Supine Isometric Hamstring Set - 3 x daily - 7 x weekly - 10 reps - 5 sec hold - Supine Heel Slide - 3 x daily - 7 x weekly - 10 reps - Standing Hip Abduction with Counter Support - 3 x daily - 7 x weekly - 10 reps seated fwd bend, reach fwd sitting, seated september x 10 supine standing hip flex, abd, ext, heel toe raises, mini squats x 10 at counter sit<>stands hands on knees x 5 Manual Therapy Techniques Manual Therapy Minutes (minutes) 8 Manual Therapy Techniques manual stretch to R HF, ER/IR, abd/add. HS stretch, add stretch Incision intact, glue in place , no redness noted. Gait & Stair Training Gait & Stair Training Comments Gt flexed at hips, some knee flex. Pt reminded to stand tall before amb. He is using a cane, used walker 1 day at home. Worked on hip/knee ext with gt. Pt educated on stretching to improve ROM, strengthening and working with PT to reduce substitution patterns with gt. Other Interventions Provided Other Interventions Provided supine lying flat instructed, precautions, fall prevention, activity level, use of ice. Pt has not been using ice at home. Treatment Minutes Untimed Code Treatment Minutes 10 Timed Code Treatment Minutes 37 Total Treatment Time 47 Billing Units Therapeutic Exercise Units 2 Re-Evaluation Units 1 Assessment/Impression Assessment/Impression Michael is 78 year old male s/ p R YULISA on 08/24/24. Pt lives alone in [facility] home with 3 stairs to enter. Dtr present for PT. Pt reports using a walekr x 1 day, ice 1x only since surgery. He takes Tramadol. Has been doing his ex with dtr reminding him. 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 He presents with hip flex pattern, tight HF and flexed knees with gt and standing. Lacks ER/IR, 0-30 ER , IR 0-10 today. Hip flex 10- 100 in sitting. Added ex seated, supine and standing for stretching and strengthening 1x/day, pt to do his YULISA ex from hospital 2x/ day. Discussed progression of PT, getting his posture more upright, gt more upright to reduce fall risk. 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 Primary Functional Limitations pain, weakness, impaired functional mobility Plan of Care Physical Therapy Goals Within 8-10 weeks. 1. Pt will amb level surfaces 20 min without an assistive device and no evidence of limp . 2. Pt will ascend/descend 13 stairs with railing reciprocally, safely and independently for household and community mobility. 3. Pt will demonstrate normal strength of surgical hip to prevent substitution of movement, prevent falls with mobility. 4. Pt will be independent in home ex program to promote strength and mobility and to prevent falls. Daily Plan of Care Continue per POC Daily Plan of Care Comments weekly PT Student Supervision Licensed PT Directed/Approved Treatment, Reviewed POC with Patient,Made Contact with Patient, Participated in Treatment
== END 2024-10-11 08:22 | disposition home or self-care (01) ==
PROVIDERS: PCP Family Medicine; Visit Provider Orthopaedic Surgery
DX: M16.11 Unilateral primary osteoarthritis, right hip (principal); Z96.641 Presence of right artificial hip joint; M25.551 Pain in right hip; M25.651 Stiffness of right hip, not elsewhere classified; R26.2 Difficulty in walking, not elsewhere classified; Z51.89 Encounter for other specified aftercare
CPT/HCPCS: 97110; 97140; 97161; 97164

== ENCOUNTER 2024-11-27 11:20 | Outpatient (CLI) | payer MEDICARE, SELFPAY | END 2024-11-27 11:21 | disposition home or self-care (01) | PROVIDERS: PCP Family Medicine; Visit Provider Family Medicine | DX: E78.5 Hyperlipidemia, unspecified (principal); C21.0 Malignant neoplasm of anus, unspecified | CPT/HCPCS: 80061; 82378 ==